=== PATIENT | female | born 1980 | race Caucasian/White ===

== ENCOUNTER 2019-03-01 14:02 | Emergency (ER) | payer OTHER, MEDICAID ==
[~2019-03-01] VITALS: Ht 154.9 cm; Wt 58.5 kg
[2019-03-01 14:32] VITALS: Ht 154.9 cm; Wt 58.5 kg
[2019-03-01 17:47] LABS: CALCIUM 7.8 mg/dL (8.5-10.1); CARBON DIOXIDE 25.4 mmol/L (21-32); CHLORIDE SERUM 107 mmol/L (98-107); CREATININE SERUM 0.6 mg/dL (0.6-1.0); GFR1 > 60 mL/min; GLUCOSE SERUM 91 mg/dL (74-106); POTASSIUM SERUM 3.5 mmol/L (3.5-5.1); SODIUM SERUM 144 mmol/L (136-145)
[2019-03-01 17:48] LABS: BASOPHIL % 0.6 % (0-2); PLATELET COUNT 297 x10^3mcL (130-400)
[2019-03-01 17:49] LABS: RED CELL DISTRIBUTION WIDTH 15.8 % (11.5-14.5)
[2019-03-01 17:52] LABS: ALKALINE PHOSPHATASE 50 U/L (46-116); ALT/SGPT 19 U/L (14-59); AST/SGOT 13 U/L (15-37); BILIRUBIN TOTAL 0.2 mg/dL (0.20-1.00); TOTAL PROTEIN, SERUM 7.4 g/dL (6.4-8.2)
[2019-03-01 17:55] LABS: ALBUMIN 3.2 g/dL (3.4-5.0)
[2019-03-01 20:15] VITALS: BP 110/72
== END 2019-03-01 20:15 | disposition home or self-care (01) ==
LOC: ED 14:02
PROVIDERS: Emergency Medicine
DX: N83.02 Follicular cyst of left ovary (principal); N83.01 Follicular cyst of right ovary; Z98.890 Other specified postprocedural states
CPT/HCPCS: 36415

== ENCOUNTER 2019-07-11 22:55 | Emergency (ER) | payer OTHER, MEDICAID ==
[~2019-07-11] VITALS: Ht 152.4 cm; Wt 59.2 kg
[2019-07-11 23:11] VITALS: BP 127/73; Ht 152.4 cm; Wt 59.2 kg
== END 2019-07-12 00:40 | disposition home or self-care (01) ==
LOC: ED 22:55
DX: N39.0 Urinary tract infection, site not specified (principal); Z98.890 Other specified postprocedural states

== ENCOUNTER 2019-07-15 00:11 | Emergency (ER) | payer OTHER, MEDICAID ==
[~2019-07-15] VITALS: Ht 154.9 cm; Wt 59.4 kg
[2019-07-15 00:27] VITALS: Ht 154.9 cm; Wt 59.4 kg
[2019-07-15 03:27] VITALS: BP 105/72
[2019-07-15 03:55] LABS: UA SPECIFIC GRAVITY 1.025 (1.005-1.035); microscopic required? YES; urine erythrocyte TRACE (NEGATIVE)
== END 2019-07-15 03:27 | disposition home or self-care (01) ==
LOC: ED 00:11
PROVIDERS: Emergency Medicine
DX: N39.0 Urinary tract infection, site not specified (principal); B37.9 Candidiasis, unspecified

== ENCOUNTER 2019-07-22 01:12 | Emergency (ER) | payer OTHER, MEDICAID ==
[~2019-07-22] VITALS: Ht 157.5 cm; Wt 60.3 kg
[2019-07-22 01:17] VITALS: Ht 157.5 cm; Wt 60.3 kg
[2019-07-22 06:30] VITALS: BP 100/57
== END 2019-07-22 06:30 | disposition home or self-care (01) ==
LOC: ED 01:12
DX: N39.0 Urinary tract infection, site not specified (principal); Z98.890 Other specified postprocedural states
CPT/HCPCS: 87491; 87591; Q0092

== ENCOUNTER 2019-08-01 04:00 | Emergency (ER) | payer OTHER, MEDICAID ==
[~2019-08-01] VITALS: Ht 162.6 cm; Wt 59.0 kg
[2019-08-01 04:08] VITALS: Ht 162.6 cm; Wt 59.0 kg
[2019-08-01 05:03] LABS: UA SPECIFIC GRAVITY 1.025 (1.005-1.035); microscopic required? YES; urine erythrocyte 2+ (NEGATIVE)
[2019-08-01 05:41] VITALS: BP 113/70
== END 2019-08-01 05:41 | disposition home or self-care (01) ==
LOC: ED 04:00
PROVIDERS: Emergency Medicine
DX: N76.0 Acute vaginitis (principal); N39.0 Urinary tract infection, site not specified; A59.01 Trichomonal vulvovaginitis; Z98.890 Other specified postprocedural states
CPT/HCPCS: 87491; 87591